=== PATIENT | female | born 1990 | race American Indian/Alaskan Native ===

== ENCOUNTER 2017-03-06 04:22 | Emergency (ER) | payer SELFPAY | END 2017-03-06 04:35 | disposition left against medical advice (07) | LOC: ED 04:22 | DX: R51 Headache (principal); Z53.21 Procedure and treatment not carried out due to patient leaving prior to being seen by health care provider ==

== ENCOUNTER 2017-04-08 06:07 | Emergency (ER) | payer SELFPAY ==
[2017-04-08] MEDS ORDERED: FIORICET PO ONE (09:36)
--- NOTE | 2017-04-08 09:57 | Emergency Department Report ---
ED Headache HPI - General Chief Complaint: Headache Stated Complaint: NECK PAIN Time Seen by Provider: 04/08/17 09:34 Source: patient Exam Limitations: no limitations - History of Present Illness Initial Comments: Patient is a 27-year-old female with no problem medical history allergies and medication presents to ED complaining of pressure-like pain right temporal/ parietal region of the head. Patient states that this sentences been intermittent for the past 5 months to a year. Patient states around 2 AM this morning this episode got worse. Patient states she also gets emesis eating tingling and numbness down the back of her right side of her head to her arms and legs to the bilateral feet. Patient states tingling sensation is episodic and comes with the headache. Patient is in the past since as a result but usually would come back. Patient states she is worried in his nose going on. Patient denies any trauma, injuries to all falls to the head. She denies nausea /vomiting/dizziness or blurry vision. Quality: moderate Head Injury Location: temporal, parietal Recent Head Trauma: no recent headache/trauma Allergies/Adverse Reactions: Allergies No Known Allergies Allergy (Verified 05/31/14 10:16) Home Medications: Ambulatory Orders Ketorolac [Toradol] 10 mg PO Q6H PRN #20 tablet 06/24/15 Methocarbamol [Robaxin TAB] 1,500 mg PO TID PRN #30 tab 06/24/15 Butalb/Acetamin/Caff 50-325-40 [Fioricet] 1 tab PO Q6HR PRN #20 tab 04/08/17 Cyclobenzaprine [Flexeril] 10 mg PO QHS PRN #20 tablet 04/08/17 Ibuprofen [Motrin] 800 mg PO Q8HR PRN #30 tablet 04/08/17 ED Review of Systems ROS: Stated complaint: NECK PAIN Other details as noted in HPI Constitutional: denies: chills, fever Eyes: denies: eye pain, eye discharge, vision change ENT: denies: ear pain, throat pain Respiratory: denies: cough, shortness of breath, wheezing Cardiovascular: denies: chest pain, palpitations Endocrine: no symptoms reported Gastrointestinal: denies: abdominal pain, nausea, diarrhea Genitourinary: denies: urgency, dysuria, frequency, discharge Musculoskeletal: denies: back pain, joint swelling, arthralgia Skin: denies: rash, lesions, pruritus Neurological: headache, numbness. denies: weakness, paresthesias, confusion Psychiatric: denies: anxiety, depression Hematological/Lymphatic: denies: easy bleeding, easy bruising ED Past Medical Hx - Past Medical History Hx Hypertension: No Hx Congestive Heart Failure: No Hx Diabetes: No Hx Deep Vein Thrombosis: No Hx Renal Disease: No Hx Sickle Cell Disease: No Hx Seizures: No Hx Asthma: No Hx COPD: No Hx HIV: No - Surgical History Hx Cholecystectomy: Yes Hx Appendectomy: Yes - Social History Smoking Status: Current Every Day Smoker Substance Use Type: None - Medications Home Medications: Home Medications Medication Instructions Recorded Confirmed Last Taken Type Ketorolac [Toradol] 10 mg PO Q6H PRN #20 tablet 06/24/15 Unknown Rx Methocarbamol [Robaxin TAB] 1,500 mg PO TID PRN #30 tab 06/24/15 Unknown Rx Butalb/Acetamin/Caff 50-325-40 1 tab PO Q6HR PRN #20 tab 04/08/17 Unknown Rx [Fioricet] Cyclobenzaprine [Flexeril] 10 mg PO QHS PRN #20 tablet 04/08/17 Unknown Rx Ibuprofen [Motrin] 800 mg PO Q8HR PRN #30 tablet 04/08/17 Unknown Rx ED Physical Exam - General Limitations: No Limitations General appearance: alert, in no apparent distress - Head Head exam: Present: atraumatic, normocephalic - Eye Eye exam: Present: normal appearance, PERRL, EOMI Pupils: Present: normal accommodation - ENT ENT exam: Present: mucous membranes moist - Neck Neck exam: Present: normal inspection, full ROM. Absent: tenderness, lymphadenopathy - Respiratory Respiratory exam: Present: normal lung sounds bilaterally. Absent: respiratory distress - Cardiovascular Cardiovascular Exam: Present: regular rate, normal rhythm. Absent: systolic murmur, diastolic murmur, rubs, gallop - GI/Abdominal GI/Abdominal exam: Present: soft, normal bowel sounds - Extremities Exam Extremities exam: Present: normal inspection - Back Exam Back exam: Present: normal inspection - Neurological Exam Neurological exam: Present: alert, oriented X3 - Psychiatric Psychiatric exam: Present: normal affect, normal mood - Skin Skin exam: Present: warm, dry, intact, normal color. Absent: rash ED Course Vital Signs 02/04/08/17 04/08/17 06:10 06:14 09:44 Temperature 98.4 F 98.4 F Pulse Rate 98 H 98 H Respiratory 18 18 16 Rate Blood Pressure 108/77 108/77 O2 Sat by Pulse 98 98 Oximetry ED Medical Decision Making - Radiology Data Radiology results: report reviewed, image reviewed CT HEAD WITHOUT CONTRAST INDICATION: Headache, right facial numbness. COMPARISON: 06/24/2015. FINDINGS: Noncontrast head CT demonstrates normal, symmetric ventricles and sulci without acute or recent infarct, hemorrhage, mass effect or midline shift. No abnormal extra-axial fluid collections. Posterior fossa structures and basilar cisterns appear within normal limits. Symmetric imaged eye globes. Clear visualized paranasal sinuses and mastoid air cells. Intact calvarium. Stable right frontal scalp possible scar. Few radiopaque dental material incidentally noted. CONCLUSION: No acute intracranial CT abnormality, as described. Thank you for the opportunity to participate in this patient's care. Transcribed By: RS Dictated By: KIRSTIN BORJA MD Electronically Authenticated By: KIRSTIN BORJA MD Signed Date/Time: 04/08/17 1104 - Medical Decision Making 27-year-old female presents with a migraine headache ED course: Patient received pain medication, CT scan of the head not indicated, pt has no neuro deficits. I discussed the patient to follow-up with her primary care for assessment of possible pre-diabetes Fingerstick point of care glucose collected in ED is 115 I discussed this report with the patient. I discussed the patient to continue to take Motrin every 8 hours for pain and get some rest. I discussed with the patient that if headache persists to follow up with neurologist as referred. Disposition follow-up with primary care physician. Patient has no neuro deficits, she is neurologically intact, speaking in full sentences, alert and oriented 3 I discussed the patient is any worsening symptoms or she has new-onset symptoms return to ED immediately Vital signs are normal patient is in no acute distress. Critical care attestation.: If time is entered above; I have spent that time in minutes in the direct care of this critically ill patient, excluding procedure time. ED Disposition Clinical Impression: Headache Qualifiers: Headache type: other headache syndrome Qualified Code(s): G44.89 - Other headache syndrome Disposition: - TO HOME OR SELFCARE Is pt being admited?: No Does the pt Need Aspirin: No Condition: Stable Instructions: Migraine Headache (ED), Tension Headache (ED), Acute Headache (ED ) Additional Instructions: Make sure to follow up with the primary care physician as discussed. Take all your medications as you've been prescribed. If you have any worsening symptoms or develop new symptoms please return to ED immediately. Prescriptions: Cyclobenzaprine [Flexeril] 10 mg PO QHS PRN #20 tablet PRN Reason: Muscle Spasm Butalb/Acetamin/Caff 50-325-40 [Fioricet] 1 tab PO Q6HR PRN #20 tab PRN Reason: Headache Ibuprofen [Motrin] 800 mg PO Q8HR PRN #30 tablet PRN Reason: Pain Referrals: PRIMARY CARE, [Primary Care Provider] - 3-5 Days RON STEPHENSON MD [Staff Physician] - 3-5 Days KYLE GONZALEZ MD [Referring] - 3-5 Days LITA TERRY MD [Referring] - 3-5 Days Forms: Accompanied Note, Work/School Release Form(ED) Time of Disposition: 11:34
--- NOTE | 2017-04-08 11:13 | Cat Scan Report ---
CT HEAD WITHOUT CONTRAST INDICATION: Headache, right facial numbness. COMPARISON: 06/24/2015. FINDINGS: Noncontrast head CT demonstrates normal, symmetric ventricles and sulci without acute or recent infarct, hemorrhage, mass effect or midline shift. No abnormal extra-axial fluid collections. Posterior fossa structures and basilar cisterns appear within normal limits. Symmetric imaged eye globes. Clear visualized paranasal sinuses and mastoid air cells. Intact calvarium. Stable right frontal scalp possible scar. Few radiopaque dental material incidentally noted. CONCLUSION: No acute intracranial CT abnormality, as described. Thank you for the opportunity to participate in this patient's care.
[2017-04-08 12:00] VITALS: BP 112/67
== END 2017-04-08 12:00 | disposition home or self-care (01) ==
LOC: ED 06:07
DX: G44.89 Other headache syndrome (principal); R20.2 Paresthesia of skin; R20.0 Anesthesia of skin; F17.200 Nicotine dependence, unspecified, uncomplicated; Z90.49 Acquired absence of other specified parts of digestive tract
CPT/HCPCS: 70450; 82962; 99283

== ENCOUNTER 2017-09-12 02:41 | Emergency (ER) | payer SELFPAY | END 2017-09-12 02:42 | disposition left against medical advice (07) | LOC: ED 02:41 | DX: R07.89 Other chest pain (principal); R06.02 Shortness of breath; Z53.21 Procedure and treatment not carried out due to patient leaving prior to being seen by health care provider | CPT/HCPCS: 93005; 93010 ==

== ENCOUNTER 2020-05-22 01:35 | Emergency (ER) | payer OTHER ==
--- NOTE | 2020-05-22 03:18 | Emergency Department Report ---
Blank Doc - Documentation Documentation: 30-year-old female that presents with vaginal bleeding and pelvic pain. Patient today is currently 12 weeks . 1- This initial assessment/diagnostic orders/clinical plan/ treatment(s) is/are subject to change based on pt's health status, clinical progression and re-ass essment by fellow clinical providers in the ED. Further treatment and workup at subsequent clinical provers discretion. Patient/guardians urged not to elope from ED as their condition may be serious if not clinically assessed and managed. 2-labs 3-UA 4-ultrasound OB
[2020-05-22 03:44] LABS: Hematocrit 32.3 % (30.3-42.9); Hemoglobin 10.7 gm/dl (10.1-14.3); Mean Corpuscular HGB Conc 33 % (30-34); Mean Corpuscular Volume 97 fl (79-97); Platelet Count 253 K/mm3 (140-440); Red Blood Count 3.35 M/mm3 (3.65-5.03); Red Cell Distribution Width 14.6 % (13.2-15.2)
--- NOTE | 2020-05-22 04:45 | Ultrasound Report ---
ULTRASOUND OBSTETRIC INDICATION / CLINICAL INFORMATION: Vaginal bleeding. Clinical Gestational Age (GA) in weeks, days: 12.3 TECHNIQUE: Transabdominal. COMPARISON: None available. FINDINGS: GESTATIONAL SAC: No gestational sac is seen YOLK SAC: No yolk sac is seen UTERUS: Uterus measures 12.7 cm in length. Endometrial stripe measures 12 mm. ADNEXA: There is a 1.6 cm complex cyst in the left ovary characteristic of a hemorrhagic cyst. FREE FLUID: None. ADDITIONAL FINDINGS: None. IMPRESSION: 1. No intrauterine is seen. Signer Name: Que Paniagua MD Signed: 05/22/2020 4:40 AM Workstation Name: [id number]
[2020-05-22 04:47] LABS: Bilirubin,Urine NEG (Negative); Blood,Urine LG (Negative); Color,Urine Yellow (Yellow); Mucus,Urine 3+ /HPF; Urobilinogen,Urine < 2.0 mg/dL (<2.0)
[2020-05-22 04:48] LABS: RBC,Urine > 182.0 /HPF (0.0-6.0)
--- NOTE | 2020-05-22 04:48 | Emergency Department Report ---
ED HPI - General Chief complaint: Vaginal Bleeding Stated complaint: POSS MISCARRIAGE Time Seen by Provider: 05/22/20 03:18 Source: patient, EMS Mode of arrival: Wheelchair Limitations: No Limitations - History of Present Illness Initial comments: This is a 30-year-old female nontoxic, well nourished in appearance, no acute signs of distress presents to the ED with c/o of vaginal bleeding x 2 weeks. Patient stated 2 weeks ago she started to have vaginal spotting last night started to have clots and believes she passed tissue. Patient stated she has pelvic cramping. Patient stated has been going about 1-2 pads an hour. Patient denies any abdominal pain. Patient denies any vaginal discharge or foul odor. Patient denies any nausea, vomiting, chest pain, shortness of breathe, fever, chills, headache, stiff neck, numbness, tingling. Patient denies any urinary symptoms. Patient denies any allergies or PMH. Patient stated she fo llows up with [facility] and does have a follow-up appointment tomorrow. Stated that her [facility] told her that she is most likely going through a miscarriage. MD Complaint: vaginal bleeding -: week(s) Location: pelvis Radiation: none Severity: mild Severity scale (0 -10): 3 Quality: cramping Consistency: constant Improves with: none Worsens with: none Associated symptoms: vaginal bleeding. denies: nausea/vomiting, vaginal discharge, abdominal pain, dysuria, headache, vision changes, malaise, dysparuenia, rash, seizure, shortness of breath, syncope, weakness Vaginal bleeding: clots :: Yes Number of weeks : 12 Pre-luna care: followed by OB - Related Data Previous Rx's Medication Instructions Recorded Last Taken Type Ketorolac [Toradol] 10 mg PO Q6H PRN #20 tablet 06/24/15 Unknown Rx methOCARBAMOL [Robaxin TAB] 1,500 mg PO TID PRN #30 tab 06/24/15 Unknown Rx Butalb/Acetamin/Caff 50-325-40 1 tab PO Q6HR PRN #20 tab 04/08/17 Unknown Rx [Fioricet] Cyclobenzaprine [Flexeril] 10 mg PO QHS PRN #20 tablet 04/08/17 Unknown Rx Ibuprofen [Motrin] 800 mg PO Q8HR PRN #30 tablet 04/08/17 Unknown Rx Ibuprofen [Motrin 800 MG tab] 800 mg PO Q8H PRN #20 tablet 10/27/19 Unknown Rx Penicillin Vk [Veetids TAB] 250 mg PO ONCE #28 tablet 10/27/19 Unknown Rx Allergies Allergy/AdvReac Type Severity Reaction Status Date / Time No Known Allergies Allergy Verified 05/31/14 10:16 ED Review of Systems ROS: Stated complaint: POSS MISCARRIAGE Other details as noted in HPI Constitutional: denies: chills, fever Eyes: denies: eye pain, eye discharge, vision change ENT: denies: ear pain, throat pain Respiratory: denies: cough, shortness of breath, wheezing Cardiovascular: denies: chest pain, palpitations Endocrine: no symptoms reported Gastrointestinal: denies: abdominal pain, nausea, diarrhea Genitourinary: abnormal menses. denies: urgency, dysuria, discharge Musculoskeletal: denies: back pain, joint swelling, arthralgia Skin: denies: rash, lesions Neurological: denies: headache, weakness, paresthesias Psychiatric: denies: anxiety, depression Hematological/Lymphatic: denies: easy bleeding, easy bruising ED Past Medical Hx - Past Medical History Previous Medical History?: No Hx Hypertension: No Hx Congestive Heart Failure: No Hx Diabetes: No Hx Deep Vein Thrombosis: No Hx Renal Disease: No Hx Sickle Cell Disease: No Hx Seizures: No Hx Asthma: No Hx COPD: No Hx HIV: No - Surgical History Past Surgical History?: Yes Hx Cholecystectomy: Yes Hx Appendectomy: Yes - Social History Smoking Status: Current Every Day Smoker - Medications Home Medications: Home Medications Medication Instructions Recorded Confirmed Last Taken Type Ketorolac [Toradol] 10 mg PO Q6H PRN #20 tablet 06/24/15 Unknown Rx methOCARBAMOL [Robaxin TAB] 1,500 mg PO TID PRN #30 tab 06/24/15 Unknown Rx Butalb/Acetamin/Caff 50-325-40 1 tab PO Q6HR PRN #20 tab 04/08/17 Unknown Rx [Fioricet] Cyclobenzaprine [Flexeril] 10 mg PO QHS PRN #20 tablet 04/08/17 Unknown Rx Ibuprofen [Motrin] 800 mg PO Q8HR PRN #30 tablet 04/08/17 Unknown Rx Ibuprofen [Motrin 800 MG tab] 800 mg PO Q8H PRN #20 tablet 10/27/19 Unknown Rx Penicillin Vk [Veetids TAB] 250 mg PO ONCE #28 tablet 10/27/19 Unknown Rx ED Physical Exam - General Limitations: No Limitations General appearance: alert, in no apparent distress - Head Head exam: Present: atraumatic, normocephalic - Eye Eye exam: Present: normal appearance - Neck Neck exam: Present: normal inspection, full ROM - Respiratory Respiratory exam: Present: normal lung sounds bilaterally. Absent: respiratory distress, wheezes, rales, rhonchi, stridor, chest wall tenderness, accessory muscle use, decreased breath sounds, prolonged expiratory - Cardiovascular Cardiovascular Exam: Present: regular rate, normal rhythm, normal heart sounds. Absent: bradycardia, tachycardia, irregular rhythm, systolic murmur, diastolic murmur, rubs, gallop - GI/Abdominal GI/Abdominal exam: Present: soft, normal bowel sounds. Absent: distended, tenderness, guarding, rebound, rigid, diminished bowel sounds - External exam: Present: normal external exam, other (Operations Asst Lyssa RN present during exam.). Absent: erythema, swelling, lesions, lacerations, ecchymosis, bleeding Speculum exam: Present: vaginal bleeding, other (Operations Asst Lyssa RN present during exam.). Absent: erythema, vaginal discharge, cervical discharge, foreign body, tissue, laceration Bi-manual exam: Present: normal bi-manual exam, other (Operations Asst Lyssa RN present during exam.). Absent: cervical motion tendernes, adnexal tenderness, adnexal mass, uterine enlargement, uterine tenderness - Extremities Exam Extremities exam: Present: normal inspection, full ROM - Back Exam Back exam: Present: normal inspection, full ROM. Absent: tenderness, CVA tenderness (R), CVA tenderness (L), muscle spasm, paraspinal tenderness, vertebral tenderness, rash noted - Neurological Exam Neurological exam: Present: alert, oriented X3, normal gait - Psychiatric Psychiatric exam: Present: normal affect, normal mood - Skin Skin exam: Present: warm, dry, intact, normal color. Absent: rash ED Course Vital Signs 05/22/20 03:08 Temperature 98.0 F Pulse Rate 92 H Respiratory 17 Rate Blood Pressure 117/51 O2 Sat by Pulse 99 Oximetry - Reevaluation(s) Reevaluation #1: 05/22/20 04:49 Patient is speaking in full sentences with no signs of distress noted. ED Medical Decision Making - Lab Data Result diagrams: 05/22/20 03:17 Lab Results 05/22/20 05/22/20 05/22/20 Range/Units 03:17 03:17 03:17 WBC 9.1 (4.5-11.0) K/mm3 RBC 3.35 L (3.65-5.03) M/mm3 Hgb 10.7 (10.1-14.3) gm/dl Hct 32.3 (30.3-42.9) % MCV 97 (79-97) fl MCH 32 (28-32) pg MCHC 33 (30-34) % RDW 14.6 (13.2-15.2) % Plt Count 253 (140-440) K/mm3 HCG, Quant 3259 H (0-4) mIU/mL Urine Color (Yellow) Urine Turbidity (Clear) Urine pH (5.0-7.0) Ur Specific Jerome (1.003-1.030) Urine Protein (Negative) mg/dL Urine Glucose (UA) (Negative) mg/dL Urine Ketones (Negative) mg/dL Urine Blood (Negative) Urine Nitrite (Negative) Urine Bilirubin (Negative) Urine Urobilinogen (<2.0) mg/dL Ur Leukocyte Esterase (Negative) Urine WBC (Auto) (0.0-6.0) /HPF Urine RBC (Auto) (0.0-6.0) /HPF U Epithel Cells (Auto) (0-13.0) /HPF Urine Mucus /HPF Blood Type A POSITIVE 05/22/20 Range/Units 04:21 WBC (4.5-11.0) K/mm3 RBC (3.65-5.03) M/mm3 Hgb (10.1-14.3) gm/dl Hct (30.3-42.9) % MCV (79-97) fl MCH (28-32) pg MCHC (30-34) % RDW (13.2-15.2) % Plt Count (140-440) K/mm3 HCG, Quant (0-4) mIU/mL Urine Color Yellow (Yellow) Urine Turbidity Slightly-cloudy (Clear) Urine pH 5.0 (5.0-7.0) Ur Specific Jerome 1.029 (1.003-1.030) Urine Protein 100 mg/dl (Negative) mg/dL Urine Glucose (UA) Neg (Negative) mg/dL Urine Ketones Neg (Negative) mg/dL Urine Blood Lg (Negative) Urine Nitrite Neg (Negative) Urine Bilirubin Neg (Negative) Urine Urobilinogen < 2.0 (<2.0) mg/dL Ur Leukocyte Esterase Neg (Negative) Urine WBC (Auto) 3.0 (0.0-6.0) /HPF Urine RBC (Auto) > 182.0 (0.0-6.0) /HPF U Epithel Cells (Auto) 4.0 (0-13.0) /HPF Urine Mucus 3+ /HPF Blood Type - Radiology Data [facility] [address] [place] [address] Ultrasound Report Signed Patient: JOSE L ONEAL MR#: [id number] : 1990 Acct:[id number] Age/Sex: 30 / F ADM Date: 05/22/20 Loc: ED Attending Dr: Ordering Physician: ANURADHA GAMBLE NP Date of Service: 05/22/20 Procedure(s): US OB <= 14 weeks fetus Accession Number(s): [id number] cc: ANURADHA GAMBLE NP ULTRASOUND OBSTETRIC INDICATION / CLINICAL INFORMATION: Vaginal bleeding. Clinical Gestational Age (GA) in weeks, days: 12.3 TECHNIQUE: Transabdominal. COMPARISON: None available. FINDINGS: GESTATIONAL SAC: No gestational sac is seen YOLK SAC: No yolk sac is seen UTERUS: Uterus measures 12.7 cm in length. Endometrial stripe measures 12 mm. ADNEXA: There is a 1.6 cm complex cyst in the left ovary characteristic of a hemorrhagic cyst. FREE FLUID: None. ADDITIONAL FINDINGS: None. IMPRESSION: 1. No intrauterine is seen. Signer Name: Que Paniagua MD Signed: 05/22/2020 4:40 AM Workstation Name: [id number] Transcribed By: SS Dictated By: Que Paniagua MD Electronically Authenticated By: Que Paniagua MD Signed Date/Time: 05/22/20439 DD/ 6 TD/TT: - Medical Decision Making This is a 30-year-old female presents with spontaneous miscarriage. Patient is stable and was examined by me. Normal abdominal exam. US OB obtained and dictated by the radiologist. Ua obtained. Quantative serum test obtained. Patient notified of the US report with no questions noted by the patient. Patient was instructed f/u with [facility] that she has an appointment this morning today. RH factor positive. Labs within normal limits. At time of discharge, the patient does not seem toxic or ill in appearance. No acute signs of distress noted. Patient agrees to discharge treatment plan of care. No further questions noted by the patient. Critical care attestation.: If time is entered above; I have spent that time in minutes in the direct care of this critically ill patient, excluding procedure time. ED Disposition Clinical Impression: Spontaneous miscarriage Disposition: DC- TO HOME OR SELFCARE Is pt being admited?: No Does the pt Need Aspirin: No Condition: Stable Instructions: Miscarriage, [id number] Additional Instructions: Follow-up with your [facility] that you have scheduled appointment this morning or if symptoms worsen and continue return to emergency room as soon as possible. Referrals: PRIMARY CAREMD [Primary Care Provider] - 3-5 Days [facility] [Provider Group] Forms: Work/School Release Form(ED) Time of Disposition: 05:10
[2020-05-22 06:08] VITALS: BP 131/55
== END 2020-05-22 05:55 | disposition home or self-care (01) ==
LOC: ED 01:35
DX: O03.9 Complete or unspecified spontaneous abortion without complication (principal); F17.200 Nicotine dependence, unspecified, uncomplicated; Z90.49 Acquired absence of other specified parts of digestive tract; Z79.899 Other long term (current) drug therapy
CPT/HCPCS: 36415; 76801; 81001; 84702; 85027; 86900; 86901

== ENCOUNTER 2021-05-10 03:26 | Emergency (ER) | payer OTHER ==
[2021-05-10 03:32] VITALS: BP 135/84
[2021-05-10 04:30] LABS: Basophils % (Auto) 0.7 % (0.0-1.8); Hematocrit 40.1 % (30.3-42.9); Hemoglobin 13.4 gm/dl (10.1-14.3); Lymphocytes # (Auto) 0.6 K/mm3 (1.2-5.4); Lymphocytes % (Auto) 9.9 % (13.4-35.0); Mean Corpuscular HGB Conc 34 % (30-34); Mean Corpuscular Volume 94 fl (79-97); Monocytes # (Auto) 0.5 K/mm3 (0.0-0.8); Monocytes % (Auto) 7.5 % (0.0-7.3); Platelet Count 274 K/mm3 (140-440); Red Blood Count 4.25 M/mm3 (3.65-5.03); Red Cell Distribution Width 14.1 % (13.2-15.2)
[2021-05-10 04:47] LABS: Bilirubin,Urine SM (Negative); Blood,Urine NEG (Negative); Color,Urine Amber (Yellow); Mucus,Urine 3+ /HPF
[2021-05-10 04:50] LABS: Alanine Aminotransferase 17 units/L (7-56); Albumin 4.5 g/dL (3.9-5); Blood Urea Nitrogen 11 mg/dL (7-17); Calcium 9.9 mg/dL (8.4-10.2); Hemolysis Index 8
[2021-05-10 04:59] LABS: BUN/Creatinine Ratio 18
[2021-05-10 05:00] LABS: Protein,Urine >500 mg/dL (Negative)
[2021-05-10 05:39] LABS: Ictotest,Urine Negative (Negative)
== END 2021-05-10 06:30 | disposition left against medical advice (07) ==
LOC: ED 03:26
DX: O21.9 Vomiting of pregnancy, unspecified (principal); R19.7 Diarrhea, unspecified; Z53.21 Procedure and treatment not carried out due to patient leaving prior to being seen by health care provider; Z3A.16 16 weeks gestation of pregnancy
CPT/HCPCS: 36415; 80053; 81001; 85025; 87086; 96361; 96365; 96375; 99282; J0696; J2405; J7030; Q0162

== ENCOUNTER 2021-05-10 09:32 | Emergency (ER) | payer OTHER ==
[2021-05-10] MEDS ORDERED: ONDANSETRON 4 MG/2 ML INJ IV ONE (12:25)
[2021-05-10] MEDS ORDERED: SODIUM CHLORIDE 0.9% 1000 ML 1,000 ML IV ONE ×2 (12:25→14:04)
[2021-05-10] MEDS ORDERED: cefTRIAXone/NS 1 GM/50 ML 1 GM/50 ML BAG IV ONE (12:26)
--- NOTE | 2021-05-10 12:27 | Emergency Department Report ---
ED N/V/D HPI - General Chief complaint: Nausea/Vomiting/Diarrhea Stated complaint: 4 MOS N/V/D VOMTTING BLOOD Time Seen by Provider: 05/10/21 12:22 Source: patient Mode of arrival: Ambulatory Limitations: No Limitations - History of Present Illness Initial comments: Patient is a 31-year-old -[place] female that comes to the emergency ro om complaining of nausea vomiting and diarrhea. She states that her son has made everybody in the house sick. He came home ill last week from school. Patient is 4 months . She saw her [employer] 2 days ago and everything was fine from an [employer] perspective. She has no vaginal bleeding or discharge. No dysuria. She was seen here last night but left because the wait was so long. She has a full set of labs and UA from last night. Therefore, labs have not been reordered. Patient has no associated abdominal pain. In the time during the ER visit today she has not had any nausea vomiting or diarrhea. Her is at bedside with her. MD complaint: nausea, vomiting, diarrhea -: Gradual, days(s) Description of Vomiting: food contents, watery Description of Diarrhea: water Associated Abdominal Pain: No Radiation: none Severity: mild Worsens with: none Associated Symptoms: denies other symptoms - Related Data Previous Rx's Medication Instructions Recorded Last Taken Type Ondansetron [Zofran Odt] 4 mg PO Q8HR PRN #10 tab.rapdis 05/10/21 Unknown Rx Allergies Allergy/AdvReac Type Severity Reaction Status Date / Time No Known Allergies Allergy Verified 05/31/14 10:16 ED Review of Systems ROS: Stated complaint: 4 MOS N/V/D VOMTTING BLOOD Other details as noted in HPI Comment: All other systems reviewed and negative ED Past Medical Hx - Past Medical History Hx Hypertension: No Hx Congestive Heart Failure: No Hx Diabetes: No Hx Deep Vein Thrombosis: No Hx Renal Disease: No Hx Sickle Cell Disease: No Hx Seizures: No Hx Asthma: No Hx COPD: No Hx HIV: No - Surgical History Hx Cholecystectomy: Yes Hx Appendectomy: Yes - Family History Family history: no significant - Social History Smoking Status: Current Every Day Smoker Substance Use Type: None - Medications Home Medications: Home Medications Medication Instructions Recorded Confirmed Last Taken Type Ondansetron [Zofran Odt] 4 mg PO Q8HR PRN #10 tab.renzo 05/10/21 Unknown Rx ED Physical Exam - General Limitations: No Limitations General appearance: alert, in no apparent distress - Head Head exam: Present: atraumatic, normocephalic - Eye Eye exam: Present: normal appearance - ENT ENT exam: Present: mucous membranes moist - Neck Neck exam: Present: normal inspection - Respiratory Respiratory exam: Present: normal lung sounds bilaterally. Absent: respiratory distress - Cardiovascular Cardiovascular Exam: Present: regular rate, normal rhythm. Absent: systolic murmur, diastolic murmur, rubs, gallop - GI/Abdominal GI/Abdominal exam: Present: soft, normal bowel sounds - Extremities Exam Extremities exam: Present: normal inspection - Back Exam Back exam: Present: normal inspection - Neurological Exam Neurological exam: Present: alert, oriented X3 - Psychiatric Psychiatric exam: Present: normal affect, normal mood - Skin Skin exam: Present: warm, dry, intact, normal color. Absent: rash ED Medical Decision Making - Medical Decision Making SEE LAST ENCOUNTER FOR LABS Labs reviewed from last encounter. medicated in ER with NS/zofran, and Zofran. Patient then reports feeling much better patient able to take p.o. Patient is ambulatory and [id number] on reexam. Patient was not sent home with antibiotics. If her UTI should reflex to culture and require antibiotics please call her. She states that her urine was checked at the [employer] 2 days ago and it was fine. Patient denies dysuria fever or back pain suggestive of UTI/Jovany. RN has been asked to recheck vital signs. Patient being discharged home with discharge plan of care including diet, activity, meds and follow-up. She verbalizes understanding of plan of care - Differential Diagnosis Gastroenteritis Critical care attestation.: If time is entered above; I have spent that time in minutes in the direct care of this critically ill patient, excluding procedure time. ED Disposition Clinical Impression: Gastroenteritis Qualifiers: Weeks of gestation: unspecified Qualified Code(s): Z34.90 - Encounter for supervision of normal , unspecified, unspecified trimester Disposition: 01 HOME / SELF CARE / HOMELESS Is pt being admited?: No Does the pt Need Aspirin: No Condition: Stable Instructions: Viral Gastroenteritis, Adult Additional Instructions: BLAND DIET BANANA- RICE-APPLESAUCE - TOAST ADVANCE TOLERATED TYLENOL FOR PAIN MED ORDERED TODAY SEE PCP IN 48 HOURS FOR RECHECK GOOD HANDWASHING AT HOME Prescriptions: Ondansetron [Zofran Odt] 4 mg PO Q8HR PRN #10 tab.rapdis PRN Reason: Vomiting Referrals: NIKKI BURNETT MD [Primary Care Provider] - 3-5 Days Time of Disposition: 14:04
== END 2021-05-10 15:09 | disposition home or self-care (01) ==
LOC: ED 09:32
DX: O99.612 Diseases of the digestive system complicating pregnancy, second trimester (principal); K52.9 Noninfective gastroenteritis and colitis, unspecified; Z3A.00 Weeks of gestation of pregnancy not specified; Z90.49 Acquired absence of other specified parts of digestive tract; F17.200 Nicotine dependence, unspecified, uncomplicated
CPT/HCPCS: 96361; 96365; 96375; 99282; Q0162; J0696; J2405; J7030

== ENCOUNTER 2021-10-27 20:00 | Outpatient (CLI) | payer OTHER ==
[2021-10-27 21:04] VITALS: BP 120/69
--- NOTE | 2021-10-27 22:35 | Ultrasound Report ---
ULTRASOUND OBSTETRIC LIMITED ULTRASOUND BIOPHYSICAL PROFILE INDICATION / CLINICAL INFORMATION: well being. - Clinical Gestational Age (GA) in weeks, days: 38 weeks 3 days TECHNIQUE: Transabdominal. COMPARISON: Ultrasound 05/22/2020 FINDINGS: BREATHING MOVEMENT = 2 GROSS BODY MOVEMENT = 2 TONE = 2 QUALITATIVE AMNIOTIC FLUID VOLUME = 2 TOTAL BIOPHYSICAL SCORE = 8/8 HEART RATE (beats per minute): Two measurements were taken. The first of the measurements was 1 20 bpm. The second of the measurements was 152 bpm. AMNIOTIC FLUID INDEX (cm) = 16.0 (normal = 7-24 cm) PRESENTATION: Cephalic. ADDITIONAL FINDINGS: None. IMPRESSION: 1. Biophysical Score = 8/8 2. heart rate ranging from 120 to 152 bpm during the examination. Signer Name: Ej Silva MD Signed: 10/27/2021 10:30 PM Workstation Name: [employer]
== END 2021-10-27 22:40 | disposition home or self-care (01) ==
LOC: TRG 20:00 → APU 20:04 → TRG 22:40
PROVIDERS: ATTEND Obstetrics & Gynecology Gynecology
DX: Z34.93 Encounter for supervision of normal pregnancy, unspecified, third trimester (principal); Z3A.38 38 weeks gestation of pregnancy
CPT/HCPCS: 36415; 76815; 76819; 84112

== ENCOUNTER 2021-10-31 23:55 | Inpatient (IN) | payer OTHER ==
[2021-11-01] MEDS ORDERED: LACTATED RINGERS 1,000 ML ONE (01:27)
[2021-11-01] MEDS ORDERED: MINERAL OIL 30 ML ORAL LIQD PO PRN (02:26)
[2021-11-01] MEDS ORDERED: CARBOPROST TROMETHAMINE 250 MCG/1 ML INJ IM PRN (02:26)
[2021-11-01] MEDS ORDERED: fentaNYL 100 MCG/2 ML INJ IV PRN (02:26)
[2021-11-01] MEDS ORDERED: LIDOCAINE (2%) 20 MG/1 ML VIAL 20 ML MDV INFILTRATI ONE (02:26)
[2021-11-01] MEDS ORDERED: TERBUTALINE 1 MG/1 ML INJ SUB-Q PRN (02:26)
[2021-11-01] MEDS ORDERED: ePHEDrine SULFATE 50 MG/1 ML INJ IV PRN ×2 (02:26→10:00)
[2021-11-01] MEDS ORDERED: ONDANSETRON 4 MG/2 ML INJ IV PRN ×2 (02:26→11:37)
[2021-11-01] MEDS ORDERED: METHYLERGONOVINE MALEATE 0.2 MG/ML VIAL IM PRN (02:26)
[2021-11-01] MEDS ORDERED: LOPERAMIDE 2 MG CAP PO PRN (02:26)
[2021-11-01] MEDS ORDERED: OXYTOCIN 10 UNIT/1 ML INJ IM PRN (02:26)
[2021-11-01] MEDS ORDERED: miSOPROStol 200 MCG TAB PR PRN (02:26)
[2021-11-01] MEDS ORDERED: BUTORPHANOL 2 MG/1 ML INJ IV PRN (02:26)
[2021-11-01] MEDS ORDERED: LACTATED RINGERS 1,000 ML IV SCH (02:30)
[2021-11-01] MEDS ORDERED: ACETAMINOPHEN 325 MG TAB PO PRN ×2 (02:33→11:37)
[2021-11-01] MEDS ORDERED: OXYTOCIN DRIP 30 UNITS/500 ML BAG IV SCH ×2 (03:00)
[2021-11-01 03:39] LABS: Hematocrit 31.7 % (30.3-42.9); Hemoglobin 10.6 gm/dl (10.1-14.3); Mean Corpuscular HGB Conc 33 % (30-34); Mean Corpuscular Volume 91 fl (79-97); Platelet Count 219 K/mm3 (140-440); Red Cell Distribution Width 15.3 % (13.2-15.2)
--- NOTE | 2021-11-01 08:50 | History and Physical Report ---
History of Present Illness Date of examination: 11/01/21 Date of admission: 11/01/21 02:26 Chief complaint: Labor pain History of present illness: 31 y/o G9 Past History Past Medical History: no pertinent history Past Surgical History: appendectomy, cholecystectomy [employer] History: herpes Family/Genetic History: hypertension Social history: no significant social history - Obstetrical History Expected Date of Delivery: 11/09/21 Actual Gestation: 38 Week(s) 6 Day(s) : 9 Para: 3 Spontaneous Abortions: 5 Number of Living Children: 3 Medications and Allergies Allergies Allergy/AdvReac Type Severity Reaction Status Date / Time No Known Allergies Allergy Verified 11/01/21 03:55 Home Medications Medication Instructions Recorded Confirmed Last Taken Type Ondansetron [Zofran Odt] 4 mg PO Q8HR PRN #10 tab.rapdis 05/10/21 Unknown Rx Active Meds: Active Medications Acetaminophen (Acetaminophen 325 Mg Tab) 650 mg PO Q4H PRN PRN Reason: Pain, Mild (1-3) Butorphanol Tartrate (Butorphanol 2 Mg/1 Ml Inj) 1 mg IV Q2H PRN PRN Reason: Pain, Moderate(4-6) LABOR PAIN Last Admin: 11/01/21 04:03 Dose: 1 mg Carboprost Tromethamine (Carboprost Tromethamine 250 Mcg/1 Ml Inj) 250 mcg IM ONCE PRN PRN Reason: Uterine Bleeding Ephedrine Sulfate (Ephedrine Sulfate 50 Mg/1 Ml Inj) 10 mg IV Q2M PRN PRN Reason: Hypotension Fentanyl (Fentanyl 100 Mcg/2 Ml Inj) 100 mcg IV Q2H PRN PRN Reason: Pain,Severe (7-10) LABOR PAIN Oxytocin/Sodium Chloride (Pitocin/Ns 30 Unit/500ml) 30 units in 500 mls @ 2 mls/hr IV TITR KADEN; Protocol Lactated Ringer's (Lactated Ringers) 1,000 mls @ 125 mls/hr IV DIRECT KADEN Oxytocin/Sodium Chloride (Pitocin/Ns 30 Unit/500ml) 30 units in 500 mls @ 40 mls/hr IV TITR KADEN; Protocol Stop: 11/02/21 23:59 Loperamide HCl (Loperamide 2 Mg Cap) 2 mg PO ONCE PRN PRN Reason: give with Hemabate Methylergonovine Maleate (Methylergonovine Maleate 0.2 Mg/Ml Vial) 0.2 mg IM ONCE PRN PRN Reason: Uterine Bleeding Mineral Oil (Mineral Oil 30 Ml Oral Liqd) 30 ml PO QHS PRN PRN Reason: Constipation Misoprostol (Misoprostol 200 Mcg Tab) 800 mcg VT ONCE PRN PRN Reason: Uterine Bleeding Ondansetron HCl (Ondansetron 4 Mg/2 Ml Inj) 4 mg IV Q8H PRN PRN Reason: Nausea And Vomiting Oxytocin (Oxytocin 10 Unit/1 Ml Inj) 10 unit IM ONCE PRN PRN Reason: Uterine Bleeding Terbutaline Sulfate (Terbutaline 1 Mg/1 Ml Inj) 0.25 mg SUB-Q ONCE PRN PRN Reason: Hyperstimulation/Hypertonicity Review of Systems All systems: negative - Vital Signs Vital signs: Vital Signs Temp 98.9 F 11/01/21 01:46 Temp Pulse Resp BP Pulse Ox 98.3 F 80 16 119/72 97 11/01/21 07:39 11/01/21 07:39 11/01/21 07:39 11/01/21 07:39 11/01/21 07:39 - Physical Exam Breasts: Positive: deferred Cardiovascular: Regular rate Lungs: Positive: Clear to auscultation Abdomen: Positive: soft Vulva: both: normal Vagina: Positive: normal moisture Adnexa: both: normal Anus/Rectum: Positive: normal perianal skin Extremities: Positive: normal Deep Tendon Reflex Grade: Normal +2 - Obstetrical FHR: category 1 Uterine Contraction Monitor Mode: External Cervical Dilatation: 7 Cervical Effacement Percentage: 70 station: -1 Uterine Contraction Pattern: Irregular Uterine Contraction Intensity: Mild Results Result Diagrams: 11/01/21 01:48 Abnormal lab results 11/01/21 Range/Units 01:48 RBC 3.50 L (3.65-5.03) M/mm3 RDW 15.3 H (13.2-15.2) % All other labs normal. Assessment and Plan A: Active labor at 38.6 weeks P: Expect
[2021-11-01] MEDS ORDERED: fentaNYL-BUPIV 2 MCG/ML-0.125% 200 MCG/100 ML BAG EPIDURAL SCH (10:00)
[2021-11-01] MEDS ORDERED: NALOXONE 0.4 MG/1 ML INJ IV PRN (10:00)
--- NOTE | 2021-11-01 10:22 | Anesthesia Consultation ---
Anesthesia Consult and Med Hx Date of service: 11/01/21 - Airway Anesthetic Teeth Evaluation: Good, Chipped (back left molar) ROM Head & Neck: Adequate Mental/Hyoid Distance: Adequate Mallampati Class: Class II Intubation Access Assessment: Probably Good - Pulmonary Exam CTA: Yes - Cardiac Exam Cardiac Exam: RRR - Pre-Operative Health Status ASA Pre-Surgery Classification: ASA2 Proposed Anesthetic Plan: Epidural (no hx of anesthetic complications) - Pulmonary Hx Smoking: Yes (Quit smoking in 2020) Hx Asthma: No COPD: No Hx Pneumonia: No - Cardiovascular System Hx Hypertension: No - Central Nervous System Hx Seizures: No Hx Psychiatric Problems: No - Endocrine Hx Renal Disease: No Hx End Stage Renal Disease: No Hx Hypothyroidism: No Hx Hyperthyroidism: No - Hematic Hx Anemia: No Hx Sickle Cell Disease: No - Other Systems Hx Alcohol Use: No
--- NOTE | 2021-11-01 11:09 | Progress Note ---
Labor Epidural - Labor Epidural Start Time: 10:00 Stop Time: 10:10 Performed by:: BREN CAMARGO Procedure: Patient is requesting epidural for labor pain. H&P and labs reviewed. Procedure explained, questions answered, [facility] arrival. Patient placed in sitting position with monitors applied. Timeout performed immediately before start of procedure. Prep/drape in usual sterile fashion. Skin anesthetized w/ 3 mL 1% lidocaine at L[2]-L[3]. 18-gauge Familiar epidural needle advanced to KARLA with saline at [6] cm. No blood/CSF noted via epidural needle. 26g spinal needle advanced into intrathecal space until clear, free flowing CSF noted. 0.5cc 0.75% hyperbaric bupivacaine injected into intrathecal space. Spinal needle removed and epidural catheter advanced to [12] cm. Negative aspiration for blood and CSF via catheter, negative response to test dose 3 ml 1.5% lidocaine w/ epi. Sterile dressing applied followed by tape reinforcement. Patient tolerated procedure well. No immediate complications noted.
[2021-11-01] MEDS ORDERED: WITCH HAZEL/ GLYCERIN PAD TP PRN (11:37)
[2021-11-01] MEDS ORDERED: MAGNESIUM HYDROXIDE (MOM) ORAL LIQD UDC PO PRN (11:37)
[2021-11-01] MEDS ORDERED: diphenhydrAMINE 25 MG CAP PO PRN (11:37)
[2021-11-01] MEDS ORDERED: LANOLIN/ZINC/DIMETHICONE (LANSINOH) 7 GM TP PRN (11:37)
--- NOTE | 2021-11-01 11:37 | Procedure Note ---
OB Delivery Note - Delivery Date of Delivery: 11/01/21 Surgeon: DIONY PORTILLO Estimated blood loss: 100cc - Vaginal Delivery presentation: vertex Delivery position: OA Delivery augmentation: rupture of membranes, pitocin Delivery monitor: external FHT, external uterine Route of delivery: Delivery placenta: spontaneous Delivery cord: 3 umbilical vessels Episiotomy: none Delivery laceration: none Anesthesia: epidural Delivery comments: of a viable male on 11/01/2021 @ 1128 over intact perineum. Placenta delivered 3VCI. - A at 1 minute: 8 at 5 minutes: 9 Infant Gender: Male
[2021-11-01] MEDS: oxyCODONE /ACETAMINOPHEN 5-325MG TAB PO PRN ×2 (15:44→20:54)
[2021-11-01] MEDS: IBUPROFEN 800 MG TAB PO PRN (18:41)
[2021-11-01 23:40] LABS: Hematocrit 30.3 % (30.3-42.9)
[2021-11-02] MEDS ORDERED: TETANUS,DIPH,PERTUSS(ACELL) VACCINE 0.5 ML SYRINGE IM ONE (06:00)
[2021-11-02] MEDS: oxyCODONE /ACETAMINOPHEN 5-325MG TAB PO PRN ×2 (06:19→16:47)
[2021-11-02] MEDS: IBUPROFEN 800 MG TAB PO PRN (08:40)
--- NOTE | 2021-11-02 10:29 | Progress Note ---
Assessment and Plan A: PPD # 1 -stable P: Discharge home today Discharge instructions given Subjective - Subjective Date of service: 11/02/21 Principal diagnosis: PPD # 1 - stable Interval history: C/O back pain from epidural Patient reports: appetite normal : doing well Objective - Vital Signs Latest vital signs: Vital Signs Temp Pulse Resp BP Pulse Ox Pulse Ox 11/02/21 08:03 98.2 F 81 20 130/68 100 11/02/21 06:19 98 11/02/21 03:20 98 11/02/21 01:40 98 11/01/21 23:27 81 20 126/73 98 11/01/21 23:20 98 11/01/21 21:50 98 11/01/21 20:35 98 11/01/21 17:01 99.2 F 90 18 115/67 97 11/01/21 14:30 99 11/01/21 13:20 98.1 F 79 116/74 100 11/01/21 12:54 87 94 11/01/21 12:52 80 98 11/01/21 12:47 83 99 11/01/21 12:43 91 H 129/83 11/01/21 12:42 88 98 11/01/21 12:37 69 97 11/01/21 12:36 76 90 11/01/21 12:32 77 100 11/01/21 12:27 78 131/76 99 11/01/21 12:25 82 90 11/01/21 12:22 80 99 11/01/21 12:17 86 98 11/01/21 12:13 87 120/69 11/01/21 12:12 84 97 11/01/21 12:07 84 93 11/01/21 12:02 86 100 11/01/21 11:58 96 H 137/67 11/01/21 11:57 88 100 11/01/21 11:52 91 H 99 11/01/21 11:47 95 H 99 11/01/21 11:43 89 126/74 11/01/21 11:42 89 99 11/01/21 11:37 88 100 11/01/21 11:33 90 92 11/01/21 11:32 83 100 11/01/21 11:27 85 100 11/01/21 11:22 84 100 11/01/21 11:17 84 99 11/01/21 11:12 90 98 11/01/21 11:07 86 119/74 100 11/01/21 11:02 88 98 11/01/21 10:57 76 100 11/01/21 10:52 75 100 11/01/21 10:47 79 100 11/01/21 10:42 85 99 11/01/21 10:37 81 99 11/01/21 10:32 82 100 11/01/21 10:27 84 100 Intake and Output 11/01/21 11/02/21 11/02/21 22:59 06:59 14:59 Intake Total 1080 Output Total 800 Balance 280 Intake: Oral 720 Intake, Free Water 360 Output: Urine 800 Void 800 Other: Total, Intake Amount 240 Total, Output Amount 300 # Voids Void 1 1 - Exam Cardiovascular: Present: Regular rate Lungs: Present: Clear to auscultation Abdomen: Present: soft Vulva: both: normal Uterus: Present: fundal height below umbilicus Deep Tendon Reflex Grade: Normal +2 - Labs Labs: Abnormal lab results 11/01/21 Range/Units 22:54 Hgb 10.0 L (10.1-14.3) gm/dl
--- NOTE | 2021-11-02 10:31 | Discharge Summary ---
Providers - Providers Date of Admission: 11/01/21 02:26 Date of discharge: 11/02/21 Attending physician: CHERYL CHA MD Primary care physician: CHERYL CHA MD Hospitalization Reason for admission: active labor Delivery: Episiotomy: none Laceration: none Other procedures: none complications: none Discharge diagnosis: IUP at term delivered [place] baby: male Hospital course: uneventful course Condition at discharge: Good Disposition: 01 HOME / SELF CARE / HOMELESS Plan - Provider Discharge Summary Activity: routine, no sex for 6 weeks, no strenuous exercise Diet: routine Instructions: routine Additional instructions: [] Smoking cessation referral if applicable(refer to patient education folder for contact #) [] Refer to [facility]'s [facility] Booklet Call your doctor immediately for: * Fever > 100.5 * Heavy vaginal bleeding ( >1 pad per hour) * Severe persistent headache * Shortness of breath * Reddened, hot, painful area to leg or breast * Drainage or odor from incision. * Keep incision clean and dry at all times and follow doctor's instructions regarding bathing/showering - Follow up plan Follow up: CHERYL CHA MD [Primary Care Provider] - 6 Weeks
--- NOTE | 2021-11-02 16:21 | Post Anesthesia Evaluation ---
- Post Anesthesia Evaluation Patient Participated: Yes Airway Patent: Yes Stable Respiratory Function: Yes Nausea/Vomiting: No Temp > 96.8F: Yes Pain Manageable: Yes Adequeate Hydration: Yes Anesthesia Complications: No Block Receding Appropriately: Yes Patient on Ventilator: No Other Comments: Pt states that she is experiencing pain at the puncture site where the epidural needle went in. I spoke with her and discussed the possibility of such pain and advised her that after d/c if it gets worse and doesn't subside to seek medical attention.
[2021-11-03] MEDS: oxyCODONE /ACETAMINOPHEN 5-325MG TAB PO PRN ×2 (11:23)
[2021-11-03 13:40] VITALS: BP 134/78
== END 2021-11-03 13:46 | disposition home or self-care (01) | DRG 774 ==
LOC: TRG 23:55 → APU 23:56 → TRG 11-01 02:26 → LD 11-01 02:26 → OB 11-01 13:10
PROVIDERS: ADMIT Obstetrics & Gynecology Gynecology; ATTEND Obstetrics & Gynecology Gynecology
PROC: 10E0XZZ Delivery of Products of Conception, External Approach (ICD-10-PCS; principal; 2021-11-01)
PROC: 3E0R3BZ Introduction of Anesthetic Agent into Spinal Canal, Percutaneous Approach (ICD-10-PCS; 2021-11-01)
PROC: 00HU33Z Insertion of Infusion Device into Spinal Canal, Percutaneous Approach (ICD-10-PCS; 2021-11-01)
PROC: 3E0234Z Introduction of Serum, Toxoid and Vaccine into Muscle, Percutaneous Approach (ICD-10-PCS; 2021-11-02)
DX: O98.32 Other infections with a predominantly sexual mode of transmission complicating childbirth (principal); Z37.0 Single live birth; A60.00 Herpesviral infection of urogenital system, unspecified; Z90.49 Acquired absence of other specified parts of digestive tract; Z3A.38 38 weeks gestation of pregnancy; Z23 Encounter for immunization
CPT/HCPCS: 36415; 85014; 85018; 85027; 86592; 86850; 86900; 86901; 96360; 96361; 96365; 96366; 96367; 96374; G0378; J3490; J0595; J2590; J7120